=== PATIENT | male | born 1970 | race Caucasian/White ===

== ENCOUNTER 2019-12-06 15:41 | Inpatient (IN) | payer MEDICAID ==
[~2019-12-06] VITALS: Ht 175.3 cm; Wt 75.4 kg
[2019-12-06] MEDS ORDERED: MORPHINE SULFATE 4 MG/ML, 1ML IVPush PRN ×2 (17:00→20:00)
[2019-12-06] MEDS ORDERED: ONDANSETRON 2MG/ML, 2ML IVPush ONE (17:00)
[2019-12-06] MEDS ORDERED: ONDANSETRON 2MG/ML, 2ML ONE (17:12)
[2019-12-06 17:15] LABS: BASOPHILS # (AUTO) 0.01 x10^3/uL (0-0.1); BASOPHILS % (AUTO) 0 % (0-1); EOSINOPHILS # (AUTO) 0.04 x10^3/uL (0-0.4); EOSINOPHILS % (AUTO) 0 % (1-7); LYMPHOCYTES # (AUTO) 1.74 x10^3/uL (1-3.4); LYMPHOCYTES % (AUTO) 11 % (22-44); MD NO; MEAN CORPUSCULAR HEMOGLOBIN 31.3 pg (27.5-34.5); MEAN CORPUSCULAR HGB CONC 33.5 g/dL (33.2-36.2); MEAN CORPUSCULAR VOLUME 93.2 fL (81-97); MEAN PLATELET VOLUME 6.5 fL (7.4-10.4); MONOCYTES # (AUTO) 1.25 x10^3/uL (0.2-0.8); MONOCYTES % (AUTO) 8 % (2-9); NEUTROPHILS # (AUTO) 12.52 x10^3/uL (1.8-6.8); NEUTROPHILS % (AUTO) 81 % (42-75); PLATELET COUNT 320 x10^3/uL (130-400); RED BLOOD COUNT 5.17 x10^6/uL (4.38-5.82)
[2019-12-06 17:26] LABS: ALANINE AMINOTRANSFERASE 27 U/L (12-78); ANION GAP 9 mmol/L (5-15); CALCIUM 9.6 mg/dL (8.5-10.1); CHLORIDE 101 mmol/L (98-107); CREATININE 1.33 mg/dL (0.7-1.3)
[2019-12-06 17:28] LABS: ALKALINE PHOSPHATASE 75 U/L (45-117); BILIRUBIN,TOTAL 0.7 mg/dL (0.2-1.0); TOTAL PROTEIN 8.8 g/dL (6.4-8.2)
--- NOTE | 2019-12-06 17:45 | NUR ---
PT DESATED ON ADMIN OF MS 02 APPLIED
--- NOTE | 2019-12-06 19:11 | NUR ---
RN received report from Diurnal RN and assumed patient care. Patient resting comfortably, and appears somewhat lethargic. Received update on plan of care from provider to suggest patient will be discharged conditionally as long as patients pulsatile oxygen remains within normal limits. RN returned to bedside, oxygen tirated from 2 liters per minute via nasal cannula to Room air. Observed for about 5 minutes while oxygen remained >98%. Medical student at bedside, relayed improvement in oxygenation status. Awaiting disposition.
[2019-12-06] MEDS ORDERED: SODIUM CHLORIDE 0.9% 1,000 ML IV ONE ×2 (19:30→19:37)
[2019-12-06] MEDS ORDERED: HYDROcodone/APAP 5/325 TABLET PO ONE (19:30)
[2019-12-06] MEDS ORDERED: HYDROcodone/APAP 5/325 TABLET ONE (19:33)
[2019-12-06] MEDS ORDERED: ONDANSETRON 2MG/ML, 2ML IVPush PRN ×2 (20:00→21:30)
[2019-12-06] MEDS ORDERED: SODIUM CHLORIDE FLUSH 10ML SYR IVF PRN (20:00)
[2019-12-06 21:15] VITALS: BP 186/113
[2019-12-06] MEDS ORDERED: DOCUSATE 100 MG CAPSULE PO PRN (21:30)
[2019-12-06] MEDS ORDERED: ACETAMINOPHEN 325 MG TABLET PO PRN (21:30)
[2019-12-06] MEDS ORDERED: LIDODERM 5% PATCH TD PRN (21:30)
[2019-12-06] MEDS ORDERED: TEMAZEPAM 15 MG CAPSULE PO PRN (21:30)
[2019-12-06] MEDS: ENALAPRILAT 1.25 MG/ML, 2ML IVPush PRN (21:33)
[2019-12-06] MEDS: morphine SULFATE 10 MG/ML, 1ML IVPush PRN (21:34)
[2019-12-06] MEDS: LACTATED RINGERS 1,000 ML IV SCH (22:03)
[2019-12-06 22:04] VITALS: BP 137/86
[2019-12-07] MEDS: LACTATED RINGERS 1,000 ML IV SCH ×3 (04:51→19:30)
[2019-12-07] MEDS: morphine SULFATE 10 MG/ML, 1ML IVPush PRN ×3 (06:03→15:21)
[2019-12-07 06:04] VITALS: BP 160/101
[2019-12-07 06:09] LABS: MEAN CORPUSCULAR HEMOGLOBIN 31.5 pg (27.5-34.5); MEAN CORPUSCULAR HGB CONC 33.4 g/dL (33.2-36.2); MEAN CORPUSCULAR VOLUME 94.3 fL (81-97); MEAN PLATELET VOLUME 6.8 fL (7.4-10.4); PLATELET COUNT 288 x10^3/uL (130-400); RED BLOOD COUNT 4.98 x10^6/uL (4.38-5.82); RED CELL DISTRIBUTION WIDTH 13.1 % (9.4-14.8)
[2019-12-07] MEDS: ENALAPRILAT 1.25 MG/ML, 2ML IVPush PRN ×2 (06:12→13:09)
[2019-12-07 06:18] LABS: ANION GAP 7 mmol/L (5-15); CALCIUM 9.1 mg/dL (8.5-10.1); CHLORIDE 103 mmol/L (98-107)
[2019-12-07 06:19] LABS: TRIGLYCERIDES 63 mg/dL (50-200)
[2019-12-07 06:32] LABS: BASOPHILS # (AUTO) 0.01 x10^3/uL (0-0.1); BASOPHILS % (AUTO) 0 % (0-1); EOSINOPHILS # (AUTO) 0.12 x10^3/uL (0-0.4); EOSINOPHILS % (AUTO) 1 % (1-7); LYMPHOCYTES # (AUTO) 1.82 x10^3/uL (1-3.4); LYMPHOCYTES % (AUTO) 12 % (22-44); MD SCAN; MONOCYTES # (AUTO) 1.45 x10^3/uL (0.2-0.8); MONOCYTES % (AUTO) 9 % (2-9); NEUTROPHILS % (AUTO) 78 % (42-75)
[2019-12-07 07:10] VITALS: BP 156/110
[2019-12-07 12:14] VITALS: BP 166/104
[2019-12-07 14:47] VITALS: BP 170/110
[2019-12-07] MEDS ORDERED: INDOCYANINE GREEN 25 MG VIAL ONE (18:19)
[2019-12-07] MEDS ORDERED: CEFTRIAXONE PMX 2GM/50ML 50 ML IV ONE (18:30)
[2019-12-07] MEDS ORDERED: EPINEPHRINE 1 MG/ML, 1ML ONE (18:58)
[2019-12-07] MEDS ORDERED: BUPIVACAINE/PF 0.5% ONE (18:58)
[2019-12-07 19:12] LABS: MICROSCOPIC NOT IND
[2019-12-07 19:21] LABS: CULTURE INDICATED? NO
[2019-12-07] MEDS ORDERED: MIDAZOLAM 1 MG/ML, 2ML ONE (20:10)
[2019-12-07] MEDS ORDERED: FENTANYL PF 250 MCG/5ML ONE (20:11)
[2019-12-07] MEDS ORDERED: SUCCINYLCHOLINE 20 MG/ML, 10ML ONE (20:15)
[2019-12-07] MEDS ORDERED: GLYCOPYRROLATE 0.2MG/1ML, 5ML ONE (20:15)
[2019-12-07] MEDS ORDERED: ROCURONIUM 10 MG/ML,10ML ONE (20:15)
[2019-12-07] MEDS ORDERED: NEOSTIGMINE 1 MG/ML, 10ML ONE (20:15)
[2019-12-07] MEDS ORDERED: ESMOLOL 100 MG/10 ML ONE (20:15)
[2019-12-07] MEDS ORDERED: CEFAZOLIN 1,000 MG ONE (20:15)
[2019-12-07] MEDS ORDERED: PROPOFOL 10 MG/ML, 20ML ONE (20:15)
[2019-12-07] MEDS ORDERED: KETOROLAC 30 MG/1 ML IV PRN (20:30)
[2019-12-07] MEDS ORDERED: LORazepam 2 MG/ML, 1ML IVPush PRN (20:30)
[2019-12-07] MEDS ORDERED: OXYcodone 5 MG/5 ML ORAL.SOL UDC PO PRN (20:30)
[2019-12-07] MEDS ORDERED: hydrALAzine 20 MG/ML, 1ML IV PRN (20:30)
[2019-12-07] MEDS ORDERED: ONDANSETRON 2MG/ML, 2ML IV PRN (20:30)
[2019-12-07] MEDS ORDERED: HYDROmorphone 2 MG/ML, 1ML IVPush PRN (20:30)
[2019-12-07] MEDS ORDERED: MEPERIDINE/PF 25MG/ML,1ML IVPush PRN (20:30)
[2019-12-07] MEDS ORDERED: LABETALOL 5MG/ML, 20ML IV PRN (20:30)
[2019-12-07] MEDS ORDERED: FENTANYL PF 100 MCG/2ML ONE (22:10)
[2019-12-07] MEDS ORDERED: OXYcodone 5 MG/5 ML ORAL.SOL UDC ONE (22:10)
[2019-12-07] MEDS: FENTANYL PF 100 MCG/2ML IV PRN ×3 (22:13→22:44)
[2019-12-08] MEDS: morphine SULFATE 10 MG/ML, 1ML IVPush PRN ×2 (01:10→05:06)
[2019-12-08] MEDS: LACTATED RINGERS 1,000 ML IV SCH ×3 (05:15→23:27)
[2019-12-08 05:33] VITALS: BP 129/77
[2019-12-08 05:59] LABS: ALBUMIN 2.9 g/dL (3.4-5.0); ANION GAP 8 mmol/L (5-15); BASOPHILS # (AUTO) 0.04 x10^3/uL (0-0.1); BASOPHILS % (AUTO) 0 % (0-1); CALCIUM 8.6 mg/dL (8.5-10.1); CHLORIDE 102 mmol/L (98-107); EOSINOPHILS # (AUTO) 0.17 x10^3/uL (0-0.4); EOSINOPHILS % (AUTO) 1 % (1-7); LYMPHOCYTES # (AUTO) 2.13 x10^3/uL (1-3.4); LYMPHOCYTES % (AUTO) 17 % (22-44); MD NO; MEAN CORPUSCULAR HEMOGLOBIN 31.4 pg (27.5-34.5); MEAN CORPUSCULAR HGB CONC 33.1 g/dL (33.2-36.2); MEAN CORPUSCULAR VOLUME 94.7 fL (81-97); MEAN PLATELET VOLUME 7.1 fL (7.4-10.4); MONOCYTES # (AUTO) 1.12 x10^3/uL (0.2-0.8); MONOCYTES % (AUTO) 9 % (2-9); NEUTROPHILS # (AUTO) 9.13 x10^3/uL (1.8-6.8); NEUTROPHILS % (AUTO) 73 % (42-75); PLATELET COUNT 260 x10^3/uL (130-400); RED BLOOD COUNT 4.67 x10^6/uL (4.38-5.82); RED CELL DISTRIBUTION WIDTH 12.9 % (9.4-14.8)
[2019-12-08 06:02] LABS: ALANINE AMINOTRANSFERASE 41 U/L (12-78); ALKALINE PHOSPHATASE 64 U/L (45-117); BILIRUBIN,TOTAL 0.7 mg/dL (0.2-1.0); CREATININE 1.25 mg/dL (0.7-1.3); TOTAL PROTEIN 7.2 g/dL (6.4-8.2)
[2019-12-08 06:38] VITALS: BP 129/87
[2019-12-08] MEDS ORDERED: OXYcodone IR 5MG TABLET ONE ×2 (08:18→13:53)
[2019-12-08] MEDS: OXYcodone IR 5MG TABLET PO PRN ×4 (08:22→17:52)
[2019-12-08] MEDS: GABAPENTIN 300 MG CAPSULE PO SCH ×3 (08:53→20:53)
[2019-12-08] MEDS: ACETAMINOPHEN 500 MG TABLET PO SCH ×3 (08:53→20:53)
[2019-12-08 14:11] VITALS: BP 143/87
[2019-12-08 19:02] VITALS: BP 150/95
[2019-12-09 00:27] VITALS: BP 122/81
[2019-12-09] MEDS: ACETAMINOPHEN 500 MG TABLET PO SCH ×3 (02:30→14:42)
[2019-12-09 07:17] VITALS: BP 130/79
[2019-12-09] MEDS: GABAPENTIN 300 MG CAPSULE PO SCH (07:50)
[2019-12-09] MEDS: LACTATED RINGERS 1,000 ML IV SCH (10:23)
[2019-12-09 14:23] VITALS: BP 117/78
[2019-12-09] MEDS ORDERED: CELE200C PO (14:24)
[2019-12-09] MEDS ORDERED: HYDR-3240 PO (14:31)
[2019-12-09] MEDS ORDERED: GABA300C10 PO (15:44)
[2019-12-09] MEDS: OXYcodone IR 5MG TABLET PO PRN (16:02)
== END 2019-12-09 16:06 | disposition home or self-care (01) | DRG 417 ==
LOC: ED 19:43 → OBSVTOIN 19:44 → INTOOBSV 19:44 → EDIP 19:44 → EDBD 19:44 → 3N 21:02 → 4NE 12-07 23:25
PROVIDERS: ADMIT Family Medicine; ATTEND Family Medicine
PROC: 0FT44ZZ Resection of Gallbladder, Percutaneous Endoscopic Approach (ICD-10-PCS; principal; 2019-12-07 19:45)
DX: K80.00 Calculus of gallbladder with acute cholecystitis without obstruction (principal); K85.10 Biliary acute pancreatitis without necrosis or infection; N17.0 Acute kidney failure with tubular necrosis; E87.1 Hypo-osmolality and hyponatremia; L03.116 Cellulitis of left lower limb; B95.62 Methicillin resistant Staphylococcus aureus infection as the cause of diseases classified elsewhere; I15.8 Other secondary hypertension; Z86.14 Personal history of Methicillin resistant Staphylococcus aureus infection; Z87.891 Personal history of nicotine dependence; Z88.8 Allergy status to other drugs, medicaments and biological substances
CPT/HCPCS: 36415; 96374; 96375; 99285; S0020; 74181; 76700; 80048; 80053; 81003; 83036; 83690; 84478; 85025; 88304; G0378; J0171; J0690; J2250; J2405; J2704; J2710; J3010; J0330; J2270; J7120

== ENCOUNTER 2020-02-16 18:13 | Emergency (ER) | payer MEDICAID ==
[~2020-02-16] VITALS: Ht 175.3 cm; Wt 74.8 kg
[~2020-02-16 18:13] MED LIST: CELE200C PO; GABA300C10 PO; HYDR-3240 PO
[2020-02-16 18:20] VITALS: BP 151/91
--- NOTE | 2020-02-16 19:00 | NUR ---
PT TO ROOM
--- NOTE | 2020-02-16 19:13 | NUR ---
First contact with patient: Patient presents to ER c/o wound on right mid nettles. 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 No drainage noted. Patient has pain 6/10. Patient is in NAD. Respirations even and unlabored.
== END 2020-02-16 20:29 | disposition home or self-care (01) ==
LOC: ED 19:54
DX: L03.115 Cellulitis of right lower limb (principal); R21 Rash and other nonspecific skin eruption
CPT/HCPCS: 99283

== ENCOUNTER 2020-06-10 20:38 | Inpatient (IN) | payer MEDICAID ==
[~2020-06-10] VITALS: Ht 175.3 cm; Wt 74.1 kg
--- NOTE | 2020-06-10 20:59 | NUR ---
THIS IS A 50Y M THAT COMES IN FOR R KNEE PAIN. STS HIS MRSA IS FLARING UP AND SOMEONE NEEDS TO DO SOMETHING ABOUT IT. PT DENIES RECENT TRAUMA, AMB TO ROOM NADN.
[2020-06-10] MEDS ORDERED: LIDOCAINE-MPF 1%, 5ML ONE ×2 (21:24→21:43)
[2020-06-10] MEDS ORDERED: MORPHINE SULFATE 4 MG/ML, 1ML ONE (21:25)
[2020-06-10] MEDS ORDERED: ACETAMINOPHEN 500 MG TABLET ONE (21:25)
[2020-06-10] MEDS ORDERED: FAMOTIDINE 20 MG/2 ML IVPush ONE (21:30)
[2020-06-10] MEDS ORDERED: MORPHINE SULFATE 4 MG/ML, 1ML IVPush PRN (21:30)
[2020-06-10] MEDS ORDERED: SODIUM CHLORIDE 0.9% 1,000ML IVBOLUS ONE (21:30)
[2020-06-10] MEDS ORDERED: VANCOMYCIN PER PHARMACY MC ONE (21:30)
[2020-06-10] MEDS ORDERED: DIPHENHYDRAMINE 50 MG/ML, 1ML IVPush ONE (21:30)
[2020-06-10] MEDS ORDERED: ACETAMINOPHEN 500 MG TABLET PO ONE (21:30)
[2020-06-10] MEDS ORDERED: FAMOTIDINE 20 MG TABLET PO ONE (21:30)
[2020-06-10] MEDS ORDERED: LIDOCAINE 1%-EPI 1:100K, 20ML INFIL ONE (21:30)
[2020-06-10] MEDS ORDERED: CEFTRIAXONE PMX 1GM/50ML 50 ML IVPB ONE (21:30)
[2020-06-10] MEDS ORDERED: DIPHENHYDRAMINE 50 MG CAPSULE PO ONE (21:30)
--- NOTE | 2020-06-10 21:38 | NUR ---
ERP AT BEDSIDE FOR ARTHROCENTESIS
[2020-06-10] MEDS ORDERED: CEFTRIAXONE PMX 1GM/50ML 50 ML ONE (21:44)
--- NOTE | 2020-06-10 21:58 | NUR ---
ABX STARTED CULTURES DRAWN X2 PRIOR TO ABX START
[2020-06-10 22:01] LABS: BASOPHILS # (AUTO) 0.01 x10^3/uL (0-0.1); BASOPHILS % (AUTO) 0 % (0-1); EOSINOPHILS # (AUTO) 0.24 x10^3/uL (0-0.4); EOSINOPHILS % (AUTO) 2 % (1-7); LYMPHOCYTES # (AUTO) 1.87 x10^3/uL (1-3.4); LYMPHOCYTES % (AUTO) 14 % (22-44); MD NO; MEAN CORPUSCULAR HEMOGLOBIN 30.9 pg (27.5-34.5); MEAN CORPUSCULAR HGB CONC 33.2 g/dL (33.2-36.2); MEAN CORPUSCULAR VOLUME 93.1 fL (81-97); MEAN PLATELET VOLUME 7.3 fL (7.4-10.4); MONOCYTES # (AUTO) 1.11 x10^3/uL (0.2-0.8); MONOCYTES % (AUTO) 9 % (2-9); NEUTROPHILS # (AUTO) 9.81 x10^3/uL (1.8-6.8); NEUTROPHILS % (AUTO) 75 % (42-75); PLATELET COUNT 274 x10^3/uL (130-400); RED BLOOD COUNT 4.28 x10^6/uL (4.38-5.82); RED CELL DISTRIBUTION WIDTH 13.7 % (9.4-14.8)
[2020-06-10] MEDS ORDERED: DIPHENHYDRAMINE 50 MG/ML, 1ML ONE (22:01)
[2020-06-10] MEDS ORDERED: FAMOTIDINE 20 MG/2 ML ONE (22:01)
[2020-06-10 22:10] LABS: ALBUMIN 3.1 g/dL (3.4-5.0); ANION GAP 4 mmol/L (5-15); CALCIUM 8.2 mg/dL (8.5-10.1); CHLORIDE 108 mmol/L (98-107); CREATININE 1.19 mg/dL (0.7-1.3)
--- NOTE | 2020-06-10 22:24 | NUR ---
PT RESTING ON GURNEY APPEARS TO BE TOLERATING VANCO WELL,
[2020-06-10] MEDS ORDERED: VANCOMYCIN 1,500 MG in SODIUM CHLORIDE 0.9% 250 ML IV ONE (22:30)
--- NOTE | 2020-06-10 22:49 | NUR ---
PT STILL RESTING ON JOSE LUIS RAO, PT REPORTS HE STILL "FEELS FINE", PT TOLERATING VANCO WELL
--- NOTE | 2020-06-10 23:00 | NUR ---
PT RESTING ON GURNEY NADN, NO SIGNS OF NGA SYNDROME AT THIS TIME.
--- NOTE | 2020-06-10 23:19 | NUR ---
REPORT TO MARZENA TE[employer]ICAL PROPOSAL WRITER, PT READY FOR TRANSFER TO [facility] AT THIS TIME.
[2020-06-11] MEDS ORDERED: VANCOMYCIN PER PHARMACY MC PRN (00:30)
[2020-06-11 00:44] VITALS: BP 120/78
[2020-06-11] MEDS ORDERED: ACETAMINOPHEN 325 MG TABLET PO PRN (01:00)
[2020-06-11] MEDS ORDERED: ONDANSETRON ODT 4 MG PO PRN (01:00)
[2020-06-11] MEDS ORDERED: LABETALOL 5MG/ML, 20ML IVPush PRN (01:00)
[2020-06-11] MEDS ORDERED: DOCUSATE 100 MG CAPSULE PO PRN (01:00)
[2020-06-11] MEDS ORDERED: PHARMACOKINETIC CONSULTATION MC ONE (02:30)
[2020-06-11] MEDS ORDERED: PHARMACOKINETIC MONITORING MC PRN (02:30)
[2020-06-11 06:42] VITALS: BP 126/84
[2020-06-11] MEDS ORDERED: POTASSIUM CHLORIDE 20 MEQ TAB.ER.PRT PO ONE (09:00)
[2020-06-11] MEDS: LINEZOLID 600 MG TABLET PO SCH ×2 (09:17→21:34)
[2020-06-11] MEDS: HYDROcodone/APAP 5/325 TABLET PO PRN ×2 (13:39→21:35)
[2020-06-11] MEDS: ENOXAPARIN 40 MG/0.4 ML SQ SCH (14:03)
[2020-06-11 14:56] VITALS: BP 129/75
[2020-06-11] MEDS ORDERED: CEFTRIAXONE PMX 1GM/50ML 50 ML IV SCH (21:00)
[2020-06-11] MEDS: MORPHINE SULFATE 4 MG/ML, 1ML IVPush PRN (21:51)
[2020-06-11 21:59] VITALS: BP 130/88
[2020-06-12 03:55] VITALS: BP 133/84
[2020-06-12] MEDS: HYDROcodone/APAP 5/325 TABLET PO PRN ×3 (04:48→17:01)
[2020-06-12] MEDS: MORPHINE SULFATE 4 MG/ML, 1ML IVPush PRN (04:48)
[2020-06-12 05:04] LABS: BASOPHILS # (AUTO) 0.03 x10^3/uL (0-0.1); BASOPHILS % (AUTO) 0 % (0-1); EOSINOPHILS # (AUTO) 0.41 x10^3/uL (0-0.4); EOSINOPHILS % (AUTO) 4 % (1-7); LYMPHOCYTES # (AUTO) 1.84 x10^3/uL (1-3.4); LYMPHOCYTES % (AUTO) 16 % (22-44); MD NO; MEAN CORPUSCULAR HEMOGLOBIN 30.8 pg (27.5-34.5); MEAN CORPUSCULAR HGB CONC 32.8 g/dL (33.2-36.2); MEAN CORPUSCULAR VOLUME 93.9 fL (81-97); MEAN PLATELET VOLUME 7.7 fL (7.4-10.4); MONOCYTES # (AUTO) 0.84 x10^3/uL (0.2-0.8); MONOCYTES % (AUTO) 7 % (2-9); NEUTROPHILS # (AUTO) 8.37 x10^3/uL (1.8-6.8); NEUTROPHILS % (AUTO) 73 % (42-75); PLATELET COUNT 291 x10^3/uL (130-400); RED BLOOD COUNT 4.72 x10^6/uL (4.38-5.82); RED CELL DISTRIBUTION WIDTH 14.1 % (9.4-14.8)
[2020-06-12 05:12] LABS: ANION GAP 4 mmol/L (5-15); CALCIUM 8.8 mg/dL (8.5-10.1); CHLORIDE 105 mmol/L (98-107); CREATININE 0.96 mg/dL (0.7-1.3)
[2020-06-12 06:52] VITALS: BP 122/79
[2020-06-12] MEDS: LINEZOLID 600 MG TABLET PO SCH (08:10)
[2020-06-12] MEDS ORDERED: VANCOMYCIN PER PHARMACY MC PRN (11:00)
[2020-06-12] MEDS ORDERED: PHARMACOKINETIC MONITORING MC PRN (11:30)
[2020-06-12] MEDS ORDERED: PHARMACOKINETIC CONSULTATION MC ONE (11:30)
[2020-06-12] MEDS: VANCOMYCIN 1,400 MG in SODIUM CHLORIDE 0.9% 250 ML IV SCH ×2 (12:12→23:56)
[2020-06-12 12:17] LABS: HCT (SEDRATE) 42.6 % (39.2-51.8)
[2020-06-12 13:41] VITALS: BP 122/76
[2020-06-12] MEDS: ENOXAPARIN 40 MG/0.4 ML SQ SCH (14:10)
[2020-06-12] MEDS ORDERED: GADOTERATE 7.5 MMOL/15 ML SYR ONE (17:51)
[2020-06-12 19:00] VITALS: BP 117/76
[2020-06-13 00:45] VITALS: BP 77/57
[2020-06-13 01:34] VITALS: BP 127/81
[2020-06-13 05:51] LABS: ANION GAP 4 mmol/L (5-15); CALCIUM 9.3 mg/dL (8.5-10.1); CHLORIDE 104 mmol/L (98-107)
[2020-06-13 05:54] LABS: CREATININE 0.95 mg/dL (0.7-1.3)
[2020-06-13 06:08] LABS: BASOPHILS # (AUTO) 0.06 x10^3/uL (0-0.1); BASOPHILS % (AUTO) 1 % (0-1); EOSINOPHILS # (AUTO) 0.48 x10^3/uL (0-0.4); EOSINOPHILS % (AUTO) 5 % (1-7); LYMPHOCYTES # (AUTO) 1.99 x10^3/uL (1-3.4); LYMPHOCYTES % (AUTO) 20 % (22-44); MD NO; MEAN CORPUSCULAR HEMOGLOBIN 30.6 pg (27.5-34.5); MEAN CORPUSCULAR HGB CONC 32.6 g/dL (33.2-36.2); MEAN CORPUSCULAR VOLUME 94.1 fL (81-97); MEAN PLATELET VOLUME 7.7 fL (7.4-10.4); MONOCYTES # (AUTO) 0.81 x10^3/uL (0.2-0.8); MONOCYTES % (AUTO) 8 % (2-9); NEUTROPHILS # (AUTO) 6.61 x10^3/uL (1.8-6.8); NEUTROPHILS % (AUTO) 67 % (42-75); PLATELET COUNT 311 x10^3/uL (130-400); RED BLOOD COUNT 4.51 x10^6/uL (4.38-5.82); RED CELL DISTRIBUTION WIDTH 13.4 % (9.4-14.8)
[2020-06-13 07:40] VITALS: BP 131/80
[2020-06-13] MEDS ORDERED: LIDOCAINE 1%, 20ML INFIL ONE (08:30)
[2020-06-13] MEDS: HYDROcodone/APAP 5/325 TABLET PO PRN ×2 (10:08→22:12)
[2020-06-13] MEDS: VANCOMYCIN 1,400 MG in SODIUM CHLORIDE 0.9% 250 ML IV SCH ×2 (11:26→22:59)
[2020-06-13] MEDS: ENOXAPARIN 40 MG/0.4 ML SQ SCH (13:23)
[2020-06-13 13:34] VITALS: BP 124/81
[2020-06-13 19:01] VITALS: BP 134/91
[2020-06-14 01:52] VITALS: BP 121/82
[2020-06-14 05:37] LABS: CHLORIDE 106 mmol/L (98-107)
[2020-06-14 05:40] LABS: BASOPHILS # (AUTO) 0.03 x10^3/uL (0-0.1); BASOPHILS % (AUTO) 0 % (0-1); EOSINOPHILS # (AUTO) 0.38 x10^3/uL (0-0.4); EOSINOPHILS % (AUTO) 5 % (1-7); LYMPHOCYTES # (AUTO) 1.92 x10^3/uL (1-3.4); LYMPHOCYTES % (AUTO) 24 % (22-44); MD NO; MEAN CORPUSCULAR HEMOGLOBIN 30.8 pg (27.5-34.5); MEAN CORPUSCULAR HGB CONC 32.9 g/dL (33.2-36.2); MEAN CORPUSCULAR VOLUME 93.6 fL (81-97); MEAN PLATELET VOLUME 7.5 fL (7.4-10.4); MONOCYTES # (AUTO) 0.75 x10^3/uL (0.2-0.8); MONOCYTES % (AUTO) 9 % (2-9); NEUTROPHILS # (AUTO) 4.85 x10^3/uL (1.8-6.8); NEUTROPHILS % (AUTO) 61 % (42-75); PLATELET COUNT 334 x10^3/uL (130-400); RED BLOOD COUNT 4.64 x10^6/uL (4.38-5.82); RED CELL DISTRIBUTION WIDTH 13.6 % (9.4-14.8)
[2020-06-14 05:42] LABS: ANION GAP 4 mmol/L (5-15); CALCIUM 8.9 mg/dL (8.5-10.1); CREATININE 0.93 mg/dL (0.7-1.3)
[2020-06-14 07:41] VITALS: BP 152/98
[2020-06-14] MEDS: VANCOMYCIN 1,400 MG in SODIUM CHLORIDE 0.9% 250 ML IV SCH (11:26)
[2020-06-14] MEDS: ENOXAPARIN 40 MG/0.4 ML SQ SCH (13:16)
[2020-06-14 14:08] VITALS: BP 137/83
[2020-06-14 14:39] VITALS: BP 120/80
[2020-06-14] MEDS: CEFAZOLIN PMX 1GM/50ML 50 ML IV SCH ×2 (14:52→22:15)
[2020-06-14] MEDS: HYDROcodone/APAP 5/325 TABLET PO PRN (18:44)
[2020-06-14 18:49] VITALS: BP 149/103
[2020-06-15 01:17] VITALS: BP 141/75
[2020-06-15 05:02] LABS: BASOPHILS # (AUTO) 0.03 x10^3/uL (0-0.1); BASOPHILS % (AUTO) 0 % (0-1); EOSINOPHILS % (AUTO) 5 % (1-7); LYMPHOCYTES # (AUTO) 2.05 x10^3/uL (1-3.4); LYMPHOCYTES % (AUTO) 26 % (22-44); MD NO; MEAN CORPUSCULAR HEMOGLOBIN 30.7 pg (27.5-34.5); MEAN CORPUSCULAR HGB CONC 32.9 g/dL (33.2-36.2); MEAN PLATELET VOLUME 7.4 fL (7.4-10.4); MONOCYTES # (AUTO) 0.73 x10^3/uL (0.2-0.8); MONOCYTES % (AUTO) 9 % (2-9); NEUTROPHILS # (AUTO) 4.82 x10^3/uL (1.8-6.8); NEUTROPHILS % (AUTO) 60 % (42-75); PLATELET COUNT 371 x10^3/uL (130-400); RED BLOOD COUNT 4.64 x10^6/uL (4.38-5.82); RED CELL DISTRIBUTION WIDTH 13.4 % (9.4-14.8)
[2020-06-15 05:09] LABS: ANION GAP 4 mmol/L (5-15); CALCIUM 8.8 mg/dL (8.5-10.1); CHLORIDE 105 mmol/L (98-107)
[2020-06-15 05:11] LABS: CREATININE 0.81 mg/dL (0.7-1.3)
[2020-06-15] MEDS: CEFAZOLIN PMX 1GM/50ML 50 ML IV SCH (06:04)
[2020-06-15 07:54] VITALS: BP 115/71
[2020-06-15] MEDS: ENOXAPARIN 40 MG/0.4 ML SQ SCH (13:30)
[2020-06-15] MEDS ORDERED: CEFAZOLIN PMX 2GM/50ML 50 ML IVPB SCH (14:00)
[2020-06-15] MEDS ORDERED: DAPT500V3 IV (14:42)
[2020-06-15] MEDS ORDERED: ACET325T26 PO (14:42)
[2020-06-15] MEDS ORDERED: DAPTOMYCIN 500 MG in SODIUM CHLORIDE 0.9% 100 ML IVPB SCH (15:00)
[2020-06-15 15:51] VITALS: BP 138/88
== END 2020-06-15 17:45 | disposition home or self-care (01) | DRG 872 ==
LOC: ED 23:06 → EDIP 23:20 → 4NE 23:21
PROVIDERS: ADMIT Student in an Organized Health Care Education/Training Program; ATTEND Student in an Organized Health Care Education/Training Program
DX: A41.9 Sepsis, unspecified organism (principal); L03.115 Cellulitis of right lower limb; E11.9 Type 2 diabetes mellitus without complications; F41.9 Anxiety disorder, unspecified; T36.8X5A Adverse effect of other systemic antibiotics, initial encounter; E87.6 Hypokalemia; Z86.14 Personal history of Methicillin resistant Staphylococcus aureus infection; Z90.49 Acquired absence of other specified parts of digestive tract; Z87.891 Personal history of nicotine dependence; Z88.1 Allergy status to other antibiotic agents
CPT/HCPCS: 36415; 84145; 96365; 96368; 99285; J3490; 36573; 80048; 80202; 82040; 83605; 85025; 85651; 86140; 87040; 87070; 87077; 87081; 87147; 87186; 87205; G0378; J0690; J0696; J0878; J1650; J3370; A9575; C1751; J1200; J2270; J7030; J7050

== ENCOUNTER 2021-03-22 01:48 | Emergency (ER) | payer MEDICAID ==
[~2021-03-22] VITALS: Ht 175.3 cm; Wt 73.9 kg
[~2021-03-22 01:48] MED LIST changes: +ACET325T26 PO; +DAPT500V3 IV; +HYDR-2214 PO; -HYDR-3240 PO
[2021-03-22] MEDS ORDERED: AMOXICILLIN/CLAV 875-125MG TABLET PO ONE (03:00)
[2021-03-22] MEDS ORDERED: NEOSPORIN OINT. PKT 1 PACKET ONE (03:10)
--- NOTE | 2021-03-22 03:33 | NUR ---
pts wounds cleaned and dressed, pt laying in bed, a/ox4, all needs in reach, call light in reach, NAD
[2021-03-22] MEDS ORDERED: DIPH,PERTUSS(ACELL),TET VAC/PF 0.5 ML IM-VACC ONE ×2 (03:58→04:00)
[2021-03-22] MEDS ORDERED: AMOXICILLIN/CLAV 875-125MG TABLET ONE (04:03)
[2021-03-22 04:11] VITALS: BP 149/88
== END 2021-03-22 04:14 | disposition home or self-care (01) ==
LOC: ED 03:01
DX: S60.871A Other superficial bite of right wrist, initial encounter (principal); S80.272A Other superficial bite of left knee, initial encounter; S90.572A Other superficial bite of ankle, left ankle, initial encounter; S80.872A Other superficial bite, left lower leg, initial encounter; F17.210 Nicotine dependence, cigarettes, uncomplicated; W54.0XXA Bitten by dog, initial encounter; Y93.89 Activity, other specified; Y92.009 Unspecified place in unspecified non-institutional (private) residence as the place of occurrence of the external cause; Y99.8 Other external cause status
CPT/HCPCS: 90471; 90715; 99406